=== PATIENT | male | born 1985 | race Caucasian/White ===

== ENCOUNTER 2023-01-13 17:50 | Emergency (ER) | payer OTHER ==
[~2023-01-13] VITALS: Ht 170.2 cm; Wt 65.8 kg
[2023-01-13 18:18] VITALS: TEMP 98.2
[2023-01-13] MEDS ORDERED: TDAP [DIPH/PERTUSSIS/TET] 0.5 ML VIAL IM ONE ×2 (18:30→18:33)
[2023-01-13] MEDS ORDERED: LIDOCAINE HCL/PF 1% 30 ML VIAL TP ONE (18:30)
[2023-01-13] MEDS ORDERED: LIDOCAINE /MPF 1% VIAL 5 ML VIAL ONE (18:33)
--- NOTE | 2023-01-13 19:16 | NUR ---
Patient [id number], able to express own concerns. Pt states he was cutting tomatoes at work when he cut his left index finger. Discussed plan of care, pt verbalized agreement.
[2023-01-13 19:33] VITALS: BP 135/85
== END 2023-01-13 19:34 | disposition home or self-care (01) ==
LOC: ER 18:01
DX: S61.211A Laceration without foreign body of left index finger without damage to nail, initial encounter (principal); W26.9XXA Contact with unspecified sharp object(s), initial encounter; Y93.89 Activity, other specified; Y92.89 Other specified places as the place of occurrence of the external cause; Y99.8 Other external cause status
CPT/HCPCS: 99283; 12001; 90471; 90715; 73130; J3490 ×2; A6403